=== PATIENT | female | born 1960 | race Caucasian/White ===

== ENCOUNTER 2017-04-09 17:23 | Emergency (ER) | payer MEDICAID ==
[~2017-04-09] VITALS: Ht 160 cm; Wt 69.4 kg
[~2017-04-09 17:23] MED LIST: BACO TOP; ECO81 PO; GLU5 PO; GLU850 PO; HIBICLENS118 ML TOP; LEVEMIR100 U/M1 SC; LIPITOR80 MG PO; LISINOPRIL30 MG PO; MAC100 PO; METFORMIN500 M1 PO; NEU100 PO; NEURONTIN300 MG PO; PRI20 PO; TRE400 PO; ZES20 PO; [UNRECOGNIZED DRUG - CODE] PO
[2017-04-09 17:35] VITALS: Ht 160 cm; Wt 69.4 kg
[2017-04-09 19:52] LABS: BASOPHIL % 0.1 % (0-2); PLATELET COUNT 215 x10^3mcL (130-400); RED CELL DISTRIBUTION WIDTH 12.4 % (11.5-14.5)
[2017-04-09 20:07] LABS: CARBON DIOXIDE 27.7 mmol/L (21-32); CHLORIDE SERUM 96 mmol/L (98-107); CREATININE SERUM 0.7 mg/dL (0.6-1.0); GFR1 > 60 mL/min; GLUCOSE SERUM 353 mg/dL (74-106); POTASSIUM SERUM 4.3 mmol/L (3.5-5.1); SODIUM SERUM 133 mmol/L (136-145)
[2017-04-09 20:11] LABS: ALBUMIN 3.8 g/dL (3.4-5.0); ALKALINE PHOSPHATASE 118 U/L (46-116); ALT/SGPT 80 U/L (14-59); AST/SGOT 86 U/L (15-37); BILIRUBIN TOTAL 0.31 mg/dL (0.20-1.00); HDL CHOLESTEROL 38 mg/dL (40-60); LIPASE 205 IU/L (73-393); TOTAL PROTEIN, SERUM 7.9 g/dL (6.4-8.2)
[2017-04-09 20:16] LABS: CHOLESTEROL 209 mg/dL (<200); CHOLESTEROL/HDL RATIO 5.5; TRIGLYCERIDES 625 mg/dL (<150)
[2017-04-09 20:19] LABS: FREE T4 1.24 ng/dL (0.76-1.46); FREE THYROXINE INDEX 3.1 ug/dL (1.4-4.5); T4(THYROXINE) 9.7 ug/dL (4.7-13.3)
[2017-04-09 20:53] LABS: T3 TOTAL 0.89 ng/mL
[2017-04-09 23:32] VITALS: BP 121/67
== END 2017-04-09 23:32 | disposition home or self-care (01) ==
LOC: ED 17:23
PROVIDERS: Specialist
DX: J20.9 Acute bronchitis, unspecified (principal); J11.1 Influenza due to unidentified influenza virus with other respiratory manifestations; E11.9 Type 2 diabetes mellitus without complications; I10 Essential (primary) hypertension
CPT/HCPCS: 82962; 83880; 84439; 87804; J1815; J1885; J7030; J7613; J7644; Q0092